=== PATIENT | male | born 1980 | race Caucasian/White ===

== ENCOUNTER 2019-04-04 19:41 | Emergency (ER) | payer SELFPAY ==
--- NOTE | 2019-04-04 20:00 | Emergency Department Record ---
History of Present Illness - General Chief complaint: Lower Extremity Pain Stated complaint: LT LEG PAIN Time Seen by Provider: 04/04/19 19:51 Source: Patient Mode of Arrival: Ambulatory Limitations: No limitations - History of Present Illness Initial comments: 38 yo male presents to ED for evaluation of right hip and knee pain following a fall [place] approximately 10 [place] ago, was intoxicated, reports that he tripped and fell. Patient denies injury to the head or neck, denies numbness, tingling, or weakness to the extremity. Patient report pain with ambulation however is able to weight bear. Patient denies health problems at his baseline, does not take anticoagulation medications. MD Complaint: Abdominal Pain, Extremity pain, Joint pain Onset/Timin -: Hour(s) Location: Right, Lower Leg History of Same: No -: Yes Arthralgia Quality: Aching Consistency: Constant Improves with: Immobilization Worsens with: Weight bearing Associated Symptoms: Denies other symptoms - Related Data Allergies Allergy/AdvReac Type Severity Reaction Status Date / Time NO KNOWN DRUG ALLERGY Allergy Uncoded 10/21/13 10:01 Review of Systems Constitutional: Denies: Chills, Fever, Malaise, Night sweats Eyes: Denies: Eye discharge, Eye pain ENT: Denies: Congestion, Ear pain, Epistaxis Respiratory: Denies: Cough, Dyspnea Cardiovascular: Denies: Chest pain, Dyspnea on exertion Endocrine: Denies: Fatigue, Heat or cold intolerance Gastrointestinal: Denies: Abdominal pain, Nausea, Vomiting Genitourinary: Denies: Incontinence, Retention Musculoskeletal: Reports: Arthralgia. Denies: Back pain, Gout, Joint swelling Skin: Denies: Bruising, Change in color Neurological: Denies: Abnormal gait, Confusion, Headache, Tingling, Tremors Psychiatric: Denies: Anxiety Hematological/Lymphatic: Denies: Anemia, Blood Clots Physical Exam - General General Appearance: Alert, Oriented x3, Cooperative, Mild distress, Other (Patient appears mildly intoxicated on examination, steady gait, refuses wheelchair to room #1.) Limitations: No limitations - Head Head exam: Atraumatic, Normocephalic, Normal inspection Head exam detail: negative: Abrasion, Contusion, Cifuentes's sign, General tenderness, Hematoma, Laceration - Eye Eye exam: Normal appearance. negative: Conjunctival injection, Periorbital swelling, Periorbital tenderness, Scleral icterus - ENT Ear exam: negative: Auricular hematoma, Auricular trauma Nasal Exam: negative: Active bleeding, Discharge, Dried blood, Foreign body Mouth exam: negative: Drooling, Laceration, Muffled voice, Tongue elevation - Neck Neck exam: Normal inspection. negative: Meningismus, Tenderness - Respiratory Respiratory exam: Normal lung sounds bilaterally. negative: Respiratory d istress, Rhonchi, Stridor, Wheezes - Cardiovascular Cardiovascular Exam: Regular rate, Normal rhythm, Normal heart sounds - GI/Abdominal GI/Abdominal exam: Soft. negative: Rebound, Rigid, Tenderness - Rectal Rectal exam: Deferred - exam: Deferred - Extremities Extremities exam: Tenderness, Other (Small abrasion to the right knee anteriorly, FROm of the knee and hip on examination, no pain or clinical evidence for injury below the knee. Strong DPP, no pain over the foot and ankle on examination.). negative: Calf tenderness, Pedal edema - Back Back exam: Denies: CVA tenderness (R), CVA tenderness (L) - Neurological Neurological exam: Alert, Normal gait, Oriented X3 - Psychiatric Psychiatric exam: Normal affect, Normal mood - Skin Skin exam: Normal color. negative: Abrasion Type of lesion: negative: abrasion Course - Reevaluation(s) Reevaluation #1: 04/04/19 20:46 Right knee: Degenerative changes, no fracture Right knee: Degenerative changes, L>R, no fracture identified Patient was updated on all results, reports that he is feeling much improved. Patient and his SO verbalize understanding of all instructions, patient appears stable for discharge at this time. Disposition Disposition: Discharge Clinical Impression: Fall from standing Qualifiers: Encounter type: initial encounter Qualified Code(s): W19.XXXA - Unspecified fall, initial encounter Contusion of knee, right Qualifiers: Encounter type: initial encounter Qualified Code(s): S80.01XA - Contusion of right knee, initial encounter Disposition: Home, Self-Care Condition: (2) Stable Instructions: Contusion in Adults (ED) Additional Instructions: Return to ED if your symptoms worsen or if you have any concerns. Ice, Ibuprofen as needed. Follow-up with your family doctor in 3-5 days as directed. Forms: Patient Portal Access Time of Disposition: 20:47 Quality - Quality Measures Quality Measures: N/A - Blood Pressure Screening Does Patient Have Any of the Following: No Blood Pressure Classification: Hypertensive Reading Systolic Measurement: 138 Diastolic Measurement: 98 Screening for High Blood Pressure: < First Hypertensive BP, F/U Documented > [G8950] First Hypertensive Follow-up Interventions: Referral to alternative/primary care provider.
--- NOTE | 2019-04-05 14:18 | RADIOLOGY REPORT ---
EXAM: RIGHT HIP WITH AP PELVIS HISTORY: PATIENT FELL WITH RIGHT HIP AND LEG PAIN. TECHNIQUE: AP view of the pelvis, and AP and latera views of the of the right hip were obtained. Comparison: None. Encounter: Initial. FINDINGS: Mild degenerative arthritis in the right hip and moderate degenerative arthritis in the left hip. No definite acute fracture or dislocation of the right hip identified. IMPRESSION: 1. DEGENERATIVE ARTHRITIS IN THE HIPS, LEFT GREATER THAN RIGHT. 2. NO DEFINITE FRACTURE OR DISLOCATION OF THE RIGHT HIP IDENTIFIED. JOB NUMBER: [id number] [facility]
--- NOTE | 2019-04-05 14:20 | RADIOLOGY REPORT ---
EXAM: RIGHT KNEE HISTORY: PATIENT FELL WITH RIGHT KNEE PAIN. TECHNIQUE: Four views of the right knee were obtained. Comparison: None. Encounter: Initial. FINDINGS: Minor degenerative arthritis in the right knee. No definite fracture or dislocation of the right knee identified. No appreciable joint effusion. IMPRESSION: 1. MINOR DEGENERATIVE ARTHRITIS RIGHT KNEE. 2. NO DEFINITE FRACTURE OF THE RIGHT KNEE IDENTIFIED. JOB NUMBER: [id number] [facility]
== END 2019-04-04 21:07 | disposition home or self-care (01) ==
LOC: ER 19:41
DX: S80.01XA Contusion of right knee, initial encounter (principal); M25.551 Pain in right hip; W19.XXXA Unspecified fall, initial encounter; Y92.828 Other wilderness area as the place of occurrence of the external cause
CPT/HCPCS: 99284